=== PATIENT | male | born 1940 | race Caucasian/White ===

== ENCOUNTER 2016-10-11 06:28 | Emergency (ER) | payer OTHER ==
[~2016-10-11] VITALS: Ht 175.3 cm; Wt 87.3 kg
[2016-10-11 06:28] VITALS: BP 168/86; PULSE 87; RESP 16; O2SAT 98
--- NOTE | 2016-10-11 07:10 | ED.REPORT ---
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 He states that he suffered an "industrial injury" to his left leg over a month ago. At that time he was seen at urgent care instructed to be non-weightbearing on the affected leg and was given crutches. About a week after that appointment he began experiencing pain in his right leg and was referred to physical therapy by urgent care. After a trial at physical therapy he returned to work but found that pain became unbearable after 4 hours of being on his feet. He returned to urgent care recently and was referred to orthopedics, though he states that he is unable to schedule an appointment in a timely manner (upon further questioning, the patient states he did not ever call orthopedics) and would like to expedite the process of getting an MRI so that he can be seen before he moves to [place] in a week. Patient denies low back pain, and sciatic pain. Symptoms have been treated with 800mg ibuprofen tid with minimal relief. Nursing Notes Stated Complaint: RIGHT LEG PAIN Chief Complaint: Extremity Trauma Nursing Notes Reviewed: Yes Allergies: Coded Allergies: No Known Allergies (Unverified , 10/11/16) General Time Seen by MD: 06:42 Chief Complaint Thigh injury right, Knee injury right Hx Obtained From: Patient Arrived By: Walk-in Onset Occurred: More than a week ago... (1 month) Symptom Duration: Since onset Location: : Thigh right Quality: Painful Severity: Current: Moderate Severity: Maximum: Moderate Pertinent Negative: Pt denies other symptoms Recent Healthcare: Recent doctor visit Past Medical History Past Medical History Reports: Diabetes mellitus Past Surgical History Cardiac stent placement Smoking History Unknown if Ever Smoker Social History Other Social History: Good social support Ambulatory Status Crutches Review of Systems Constitutional: Denies: Chills, Fever Musculoskeletal: Reports: Extremity pain (Right Leg), Joint pain, Denies: Back pain, Extremity swelling, Lumbar pain, Neck pain, Thoracic pain Neurologic: Denies: Headache Complete sys rev & neg: except as marked. Physical Exam Initial Vital Signs Vital Signs (First) Date Time Temp Pulse Resp B/P Pulse Ox O2 Delivery O2 Flow Rate FiO2 10/11/16 06:28 36.4 87 16 168/86 98 Room Air Initial VS: Reviewed General/Constitutional: Well-developed, Well-nourished Head / Eyes: Atraumatic, Normocephalic Neck: Supple, Non-tender, Full range of motion Respiratory: Breath sounds normal, Clear to auscultation, No respiratory distress Cardiovascular: Regular rate & rhythm, Heart sounds normal, Intact distal pulses Upper Extremities: Vascular intact, Neuro intact, No swelling, No tenderness Skin: Warm, Dry, No cyanosis Neurologic: Alert, Oriented, Nonfocal Psychiatric: Mood/affect normal, Behavior normal, Normal thought content Lower Extremity / Pelvis / MS: Full range of motion, No deformity, Neurologic intact, Vascular intact Mild Pain with bearing weight on the right leg but he is able to stand. Right leg: Full passive range of motion of the hip and knee without pain, pain with activation of the hip flexor or knee extensor Ankle / Foot: Atraumatic, Inspection NL, Full range of motion, No swelling, No erythema, Non-tender, No deformity, Neurologic intact, Vascular intact, No edema Re-Eval/Medical Decision Med Decision/Clinical Course Patient has had outpatient workup for this issue including referral and course of physical therapy, essentially he arrives in the ER requesting an MRI. I see no indication for an emergent MRI. I did offer him x-rays of the hip and femur which overall would be low yield, and again which the patient declined. Most importantly I do not suspect an emergent medical condition. His neurovascular status is intact and do not suspect any claudication type symptoms or vascular compromise nor any neurogenic cause for his pain. He is urged to closely follow up with his primary care doctor in orthopedics. Re-Evaluation/Progress : Time of Eval: 07:15 Re-Evaluation/Progress Note: Discussed physical examination findings and plan to discharge. Patient is amenable to the plan. Return precautions given. All other questions addressed. Counseled Regarding: Diagnosis, Need for follow-up, When/why to return to ED Discharge & Departure Impression: Primary Impression: Leg pain, right Disposition: Home Discharge Condition All VS Reviewed: Yes Condition: Stable Additional Instructions: Follow-up with orthopedics or your primary care doctor as soon as possible. Return to the ER if you develop a high fever, loss of motor or sensory function. Leg, loss of bowel or bladder function or other concerns. Referrals: Karol Eddy MD (PCP) John Ford MD Attestation Portions of this note were transcribed by Darren Morris. I, Dr. Calderon, personally performed the history, physical exam and medical decision-making; I reviewed and confirmed the accuracy of the information in the transcribed note. Signed by: Diana Nino, 10/11/2016 and :17 copies to: Karol Eddy MD; John Ford MD, Timothy S DO Oct 11, 2016 07:10 DARREN MORRIS Oct 11, 2016 07:15
== END 2016-10-11 07:15 | disposition home or self-care (01) ==
LOC: SED 06:28
DX: M79.661 Pain in right lower leg (principal); E11.9 Type 2 diabetes mellitus without complications